=== PATIENT | male | born 1940 | race Caucasian/White ===

== ENCOUNTER → 2017-12-25 | Outpatient (CLI) | payer MEDICARE ==
--- NOTE | 2017-12-25 18:27 | US ---
EXAMINATION TYPE: US kidneys/renal and bladder DATE OF EXAM: 12/25/2017 COMPARISON: NONE CLINICAL HISTORY: 77-year-old male N18.9 Chronic kidney disease. TECHNIQUE: Multiple sonographic images of the kidneys and bladder are obtained. FINDINGS: EXAM MEASUREMENTS: Right Kidney: 10.5 x 5.4 x 5.4 cm Left Kidney: 11.3 x 5.4 x5.3 cm Right Kidney: No hydronephrosis. Lower pole limited due to bowel gas Left Kidney: No hydronephrosis. Lower pole limited due to bowel gas Bladder: wnl Bilateral Jets seen: Yes IMPRESSION: No hydronephrosis.
== END | disposition home or self-care (01) ==
LOC: RADUSWWP 14:40
PROVIDERS: ATTEND Family Medicine
DX: N18.9 Chronic kidney disease, unspecified (principal); Z88.1 Allergy status to other antibiotic agents
CPT/HCPCS: 76770

== ENCOUNTER → 2018-08-01 | Outpatient (CLI) | payer MEDICARE ==
[2018-08-01 11:33] LABS: HCT 46.7 % (39.0-53.0); HGB 15.2 gm/dL (13.0-17.5); MCH 29.1 pg (25.0-35.0); MCHC 32.7 g/dL (31.0-37.0); MCV 89.1 fL (80.0-100.0); Mean Platelet Volume 7.4; Platelet Count 180 k/uL (150-450); RBC 5.23 m/uL (4.30-5.90); RDW 14.5 % (11.5-15.5); WBC 7.9 k/uL (3.8-10.6)
[2018-08-01 12:00] LABS: Potassium 4.8 mmol/L (3.5-5.1)
== END ==
LOC: LABPAT 09:42
PROVIDERS: ATTEND Internal Medicine Clinical Cardiac Electrophysiology
DX: Z01.812 Encounter for preprocedural laboratory examination (principal); I42.8 Other cardiomyopathies; I50.22 Chronic systolic (congestive) heart failure
CPT/HCPCS: 36415; 80051; 82565; 82947; 84520; 85027

== ENCOUNTER 2018-08-11 13:56 | Day surgery (SDC) | payer MEDICARE ==
[~2018-08-11 13:56] MED LIST: LIDOCAINE 1% 20 ML VIAL (10MG/ML) FOR IV START INTRADERMA PRN; MIDAZOLAM (PF) 2 MG/2 ML VIAL IV PRN; SODIUM CHLORIDE 0.9% 1,000 ML IV SCH; ceFAZolin 1,000 MG in SODIUM CHLORIDE 0.9% IRRIGATIO 250 ML IRRIGATION ONE; ceFAZolin IN SWFI 2 GM/20 ML SYRINGE IVP ONE; fentaNYL (PF) 50 MCG/ML 2 ML AMP IV PRN
[2018-08-11] MEDS ORDERED: SODIUM CHLORIDE 0.9% 1,000 ML IV ONE (14:30)
[2018-08-11] MEDS ORDERED: diphenhydrAMINE 50 MG/ML 1 ML VIAL ONE (15:27)
[2018-08-11] MEDS ORDERED: MIDAZOLAM 2 MG/2 ML VIAL ONE (15:27)
[2018-08-11] MEDS ORDERED: HYDROmorphone (PF) 1 MG/ML ONE (15:27)
[2018-08-11] MEDS ORDERED: KETOROLAC 30 MG/ML 1 ML VIAL ONE (15:27)
[2018-08-11] MEDS ORDERED: fentaNYL (PF) 50 MCG/ML 2 ML AMP ONE (15:27)
[2018-08-11] MEDS ORDERED: IOPAMIDOL-250 50ML BTL IV ONE (15:46)
[2018-08-11] MEDS ORDERED: LIDOCAINE 1% INJ 10MG/ML (20 ML MDV) ONE ×3 (15:58→16:18)
[2018-08-11] MEDS ORDERED: LIDOCAINE 1% INJ 10MG/ML (20 ML MDV) SQ ONE (16:11)
[2018-08-11] MEDS ORDERED: HYDROcodone/APAP 5-325MG 1 EACH TAB PO PRN (17:54)
[2018-08-11] MEDS ORDERED: ACETAMINOPHEN IV (For NPO) 1,000 MG in EMPTY BAG 1 BAG IVPB ONE (17:54)
[2018-08-11] MEDS ORDERED: ACETAMINOPHEN TAB 325 MG TAB PO PRN (17:54)
[2018-08-11] MEDS: LACTATED RINGERS 1,000 ML IV SCH ×2 (18:18→18:19)
[2018-08-11 18:26] VITALS: BMI 32.8
[2018-08-11] MEDS: CARVEDILOL 12.5 MG TAB PO SCH (18:54)
--- NOTE | 2018-08-11 20:24 | PCN ---
PROCEDURE NOTE Mr. 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 A biventricular ICD was recommended for primary prevention of sudden cardiac and management of heart failure. DESCRIPTION OF PROCEDURE: The patient is brought to the EP lab in a fasting state. Written informed consent was obtained prior to the procedure. The left shoulder area was prepped and draped as per protocol. 1% lidocaine used for local anesthesia. A 4 cm incision was made parallel to the deltopectoral groove, about 1.5 cm medial to it. Incision was carried down to the level of the pectoralis muscle. A subfascial pocket was made. Hemostasis was assured. The left axillary vein was accessed at 3 separate points under fluoroscopy and via appropriately-sized introducer sheaths 3 leads were positioned. The atrial lead was a 52 cm, model #5076 52 cm length and serial number [id number]. P waves 3.1 mV. Pacing impedance 885 ohms, pacing threshold 0.5 V at 0.5 milliseconds. 10 V test negative. The RV lead was ICD lead Medtronic model #6935m 62 cm in length and serial number [id number]. This was screwed in the RV apex. R-waves 6.4 mV, pacing impedance 912 ohms. Pacing threshold 0.4 V at 0.5 milliseconds. 10 V test negative. The third lead was a Medtronic model #3830, 69 cm length and plugged in the LV port for physiologic septal pacing. This was screwed in the His bundle area and selective capture was noted from 5 V at 1 millisecond down to loss of capture which occurred at 0.7 V at 1 millisecond. Pacing impedance 528 ohms. There was a narrowing of the QRS to 131 milliseconds from the baseline of greater than 161 milliseconds. All 3 leads were secured to the underlying pectoralis fascia after removing the sheaths. Leads were connected to the generator ([employer] CRTD Viva XT model number DTBA1D 4, serial number [id number]. The leads and generator were then placed in subfascial pocket. The wound was closed in 3 layers and dressed per protocol. RESULTS: Successful biventricular ICD implantation for management of heart failure and primary prevention of sudden cardiac . PLAN: Continue current medications for heart failure and IV antibiotics, chest x-ray tomorrow and device interrogation tomorrow. The patient tolerated the procedure well without any acute complications. MMODL / IJN: [id number] /
[2018-08-11] MEDS: SACUBITRIL/VALSARTAN 49 MG-51 MG TABLET PO SCH (20:33)
[2018-08-11] MEDS: ceFAZolin IN SWFI 2 GM/20 ML SYRINGE IVP SCH (22:29)
[2018-08-12] MEDS: ceFAZolin IN SWFI 2 GM/20 ML SYRINGE IVP SCH ×3 (03:33→14:31)
[2018-08-12 07:41] VITALS: RESP 18
--- NOTE | 2018-08-12 08:14 | XR ---
EXAMINATION TYPE: XR chest 2V DATE OF EXAM: 08/12/2018 COMPARISON: NONE HISTORY: Lead placement check TECHNIQUE: Frontal and lateral views of the chest are obtained. FINDINGS: Generator is present in the left pectoral region, there are leads in the right atrium and ventricle. No pneumothorax or pleural effusion is evident. Patient is rotated. Heart size within norm al limits. Aorta is dense. Thoracic spondylosis is noted. There are overlying cardiac leads. IMPRESSION: No evident complication status post defibrillator placement.
--- NOTE | 2018-08-12 08:19 | P.DS ---
Providers Attending physician: John Gates Primary care physician: Omar Duonghven [facility] Course: Patient is doing well. No chest discomfort dizziness lightheadedness. The pacemaker/by ventricular ICD site is healed well Vitals are stable temperature 97.5F pulse rate in the 70s blood pressure 123/72 mmHg Breath sounds are clear no rhonchi no crackles Heart sounds S1-S2 normal no murmurs no gallops no rub Extremities is warm no edema Chest x-ray was reviewed. No pneumothorax Impression Severe nonischemic cardiomyopathy with a left bundle branch block with a QRS width greater than 161 ms Biventricular ICD generator implant with physiologic septal pacing. Narrowing of the QRS to width of about 135 ms Congestive heart failure class II on medical treatment Suggest Continue current medications without any changes Discharge home after completion of IV antibiotics device interrogation Follow Dr. Nogueira in follow-up with Dr. Rodríguez Patient Condition at Discharge: Stable Plan - Discharge Summary Discharge Rx Participant: Yes New Discharge Prescriptions: Continue Carvedilol [Coreg*] 12.5 mg PO BID Meloxicam [Mobic] 7.5 mg PO DAILY Cholecalciferol [Vitamin D3] 1,000 unit PO DAILY Aspirin 81 mg PO DAILY Sacubitril/Valsartan [Entresto 49 mg-51 mg Tablet] 1 each PO BID Eplerenone 12.5 mg PO DAILY Discharge Medication List Aspirin 81 mg PO DAILY 08/07/18 [History] Carvedilol [Coreg*] 12.5 mg PO BID 08/07/18 [History] Cholecalciferol [Vitamin D3] 1,000 unit PO DAILY 08/07/18 [History] Eplerenone 12.5 mg PO DAILY 08/07/18 [History] Meloxicam [Mobic] 7.5 mg PO DAILY 08/07/18 [History] Sacubitril/Valsartan [Entresto 49 mg-51 mg Tablet] 1 each PO BID 08/07/18 [History] Follow up Appointment(s)/Referral(s): Janny Nogueira MD [STAFF PHYSICIAN] - 1 Week (Device clinic follow-up within [address] Nogueira as previously scheduled) Activity/Diet/Wound Care/Special Instructions: PATIENT EDUCATION MATERIAL Instructions following a heart rhythm device implant. 1. Keep dressing DRY for 5 DAYS. You may cover the area with Saran or Cling Wrap, prior to a shower. 2. The dressing will be removed in the Device Clinic at [facility]. Absorbable sutures were used to close the wound. 3. Avoid raising the left arm above the shoulder level. 4 week restriction 4. Avoid arm movements, like backscratching, rubbing the head, or pulling on a cord. 4 weeks restriction 5. Gentle range of motion movements of the shoulder, closest to the incision should be performed to avoid a frozen shoulder. (Pendulum exercises of the shoulder) 6. The opposite arm may be used freely. 7. Avoid driving for 7 days. 8. Avoid activities such as golfing, swimming, weed whacking, lifting more than 10 pounds weight, bowling, gymnastics and weight training/lifting. (6 weeks restriction) 9. Activities such as wood chopping with an axe, pull-ups in the gymnasium, power lifting, arc-welding, being close to home induction cooktops will always be a problem. 10. Arm sling is only a reminder not to raise the arm above the head. You do not need to keep the arm completely immobilized. Your free to move the arm and use it and for normal activities. In case of any problems, please call [facility], Michelle Lerma, @ [phone], Attention: Device Clinic Device clinic follow-up in 7 days Follow-up with primary flotation operator in 2-3 months /or as previously scheduled Discharge Disposition: HOME SELF-CARE
[2018-08-12] MEDS: SACUBITRIL/VALSARTAN 49 MG-51 MG TABLET PO SCH (08:25)
[2018-08-12] MEDS: CARVEDILOL 12.5 MG TAB PO SCH (08:25)
[2018-08-12] MEDS ORDERED: SPIRONOLACTONE 25 MG TAB PO SCH (09:00)
[2018-08-12] MEDS ORDERED: ASPIRIN 81 MG PO SCH (09:00)
[2018-08-12 11:32] VITALS: BP 118/66; PULSE 67; TEMP 98.1
--- NOTE | 2018-08-12 14:48 | PN ---
PROGRESS NOTE DATE OF SERVICE: 08/12/2018 CHIEF COMPLAINT: Cardiomyopathy. HISTORY OF PRESENT ILLNESS: This gentleman is doing well he has had very little discomfort from his surgery. He has had no shortness of breath or palpitations. He expects to go home today. PHYSICAL EXAM: His vital signs are normal. Chest is clear. Cardiac exam is unremarkable and the abdomen is soft, nontender. IMPRESSION: Cardiomyopathy, status post implantation and defibrillator/pacemaker. PLAN: He will probably go home today. MMODL / IJN: [id number] /
--- NOTE | 2018-08-12 15:21 | CONS ---
CONSULTATION CHIEF COMPLAINT: Cardiomyopathy. HISTORY OF PRESENT ILLNESS: Petar is in for elective implantation of a pacemaker/defibrillator. He has not had any syncopal events or arrhythmias that he is aware of. 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 He has been going to [place] and where they recently asked him about "how he felt about a pacemaker." He was encouraged to give his consideration in that it was felt that this was a very reasonable insurance plan. He decided to go and have it done. REVIEW OF SYSTEMS: He has had no syncope, chest pain, increasing shortness of breath lately, etc. He has been doing very well. He has had no GI complaints, fever and chills, urinary complaints, etc. PAST MEDICAL HISTORY, FAMILY HISTORY, PERSONAL AND SOCIAL HISTORY: Can all be found in his admitting summary. They are otherwise unchanged from his admissions in the past. He is still allergic to TETRACYCLINE. He is on a chest tube, carvedilol, plantar known, aspirin, and vitamin D. The remainder of the history is unremarkable. He has had CA of the prostate treated in 2008 without sequelae. PHYSICAL EXAM: Blood pressure 108/58, pulse 72, respirations 16, he is afebrile. GENERAL: He appeared to be well developed, well nourished, in no acute distress. SKIN: Color is normal, skin is warm, dry. LYMPH NODES: Not enlarged. HEAD: ears, eyes, nose, mouth and throat were normal and neck veins are not distended. CHEST: Clear. CARDIAC: Exam is normal. No murmurs or extra sounds. ABDOMEN: Soft and nontender without visceromegaly, masses. EXTREMITIES: Normal. There is no edema. NEUROLOGICALLY: He is intact. IMPRESSION: Congenital cardiomyopathy. RECOMMENDATIONS: None. MMODL / IJN: [id number] /
== END 2018-08-12 15:25 | disposition home or self-care (01) ==
LOC: CATHEP 13:56 → 1SOBS 17:45 → CATHEP 08-12 15:25
PROVIDERS: ATTEND Internal Medicine Clinical Cardiac Electrophysiology
DX: I42.4 Endocardial fibroelastosis (principal); I44.7 Left bundle-branch block, unspecified; I50.23 Acute on chronic systolic (congestive) heart failure; Z82.49 Family history of ischemic heart disease and other diseases of the circulatory system; Z72.0 Tobacco use; Z79.1 Long term (current) use of non-steroidal anti-inflammatories (NSAID); Z85.46 Personal history of malignant neoplasm of prostate; Z79.82 Long term (current) use of aspirin; Z79.899 Other long term (current) drug therapy; Z96.653 Presence of artificial knee joint, bilateral; Z96.643 Presence of artificial hip joint, bilateral; Z90.79 Acquired absence of other genital organ(s)
CPT/HCPCS: 33225; 33249; 71046; C1769 ×4; C1892; C1730; C1898; C1895; C1882; J2250; J1200; J0690 ×3; J2001; J3010; J1885; J1170; J0131; Q9966

== ENCOUNTER 2024-10-26 07:25 | Day surgery (SDC) | payer MEDICARE ==
[2024-10-26] MEDS: IV FLUID CONTINUATION 1,000 ML IV ONE (07:42)
[2024-10-26] MEDS: SODIUM CHLORIDE 0.9% 1,000 ML IV SCH (07:44)
[2024-10-26 08:07] VITALS: RESP 16; TEMP 98.1
[2024-10-26] MEDS: IOPAMIDOL-370 100ML BTL INJ ONE (08:24)
[2024-10-26 08:48] VITALS: BP 116/54; PULSE 60
--- NOTE | 2024-10-26 09:29 | P.EPPROC ---
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 He has a His bundle pacing lead. QRS width is wide although the peak to activation time in lead I is 80 ms. Consideration for implantation of a left bundle pacing lead and extraction of the His bundle lead Cinefluoroscopy revealed 3 leads in the right heart including a His bundle lead. No fractures or breaks noted all leads in excellent stable position Left upper extremity venogram: Patent axillary/subclavian venous junction on the left side with bridging collaterals. 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 It is unlikely that we will proceed with an upgrade/removal of His bundle lead. Will proceed with biventricular pacemaker generator change only
== END 2024-10-26 09:26 | disposition home or self-care (01) ==
LOC: CATHEP 07:25
PROVIDERS: ATTEND Internal Medicine Clinical Cardiac Electrophysiology
DX: I44.2 Atrioventricular block, complete (principal); I42.8 Other cardiomyopathies; I50.22 Chronic systolic (congestive) heart failure; Z95.810 Presence of automatic (implantable) cardiac defibrillator; Z82.49 Family history of ischemic heart disease and other diseases of the circulatory system; Z88.8 Allergy status to other drugs, medicaments and biological substances; Z79.82 Long term (current) use of aspirin; Z79.899 Other long term (current) drug therapy
CPT/HCPCS: 36005; 75820; Q9967